=== PATIENT | male | born 1985 | race Two or more races ===

== ENCOUNTER 2019-09-07 15:51 | Emergency (ER) | payer SELFPAY ==
[~2019-09-07] VITALS: Ht 170.2 cm; Wt 64.0 kg
[2019-09-07] MEDS ORDERED: SODIUM CHLORIDE 0.9% 1,000ML IVBOLUS ONE (16:30)
[2019-09-07] MEDS ORDERED: SODIUM CHLORIDE FLUSH 10ML SYR IVF ONE (16:30)
--- NOTE | 2019-09-07 16:42 | NUR ---
PT BIB FOR ETOH INTOXICATION. PT VSS, NO INJURIES.
--- NOTE | 2019-09-07 17:23 | NUR ---
PT SLEEPING. VSS
[2019-09-07 17:24] VITALS: BP 102/65
--- NOTE | 2019-09-07 18:44 | NUR ---
RIPPED IV OUT PRIOR TO LEAVING.
== END 2019-09-07 18:45 | disposition left against medical advice (07) ==
LOC: ED 18:39
DX: F10.120 Alcohol abuse with intoxication, uncomplicated (principal); Y90.0 Blood alcohol level of less than 20 mg/100 ml
CPT/HCPCS: 99283; J7030

== ENCOUNTER 2019-09-07 22:27 | Emergency (ER) | payer SELFPAY ==
[~2019-09-07] VITALS: Ht 170.2 cm; Wt 75.0 kg
--- NOTE | 2019-09-07 22:55 | NUR ---
PT RESTING ON GURNEY WITH EYES CLOSED, RESPIRATIONS EVEN AND NONLABORED, CALL LIGHT WITHIN REACH. MONITORING IN PLACE, ALL SAFETY MEASURES IN PLACE.
[2019-09-07 23:11] LABS: ALBUMIN 3.9 g/dL (3.4-5.0); ANION GAP 8 mmol/L (5-15); CHLORIDE 111 mmol/L (98-107); CREATININE 0.75 mg/dL (0.7-1.3)
--- NOTE | 2019-09-07 23:37 | NUR ---
PT RESTING ON GURNEY WITH EYES CLOSED, RESPIRATIONS EVEN AND NONLABORED. CALL LIGHT WITHIN REACH. MONITORING IN PLACE.
--- NOTE | 2019-09-07 23:46 | NUR ---
HARD RESTRAINT REMOVED AT THIS TIME. PT RESTING ON GURNEY WITH EYES CLOSED. RESPIRATIONS EVEN AND NONLABORED.
--- NOTE | 2019-09-08 00:42 | NUR ---
PT RESTING ON GURNEY WITH EYES CLOSED, RESPIRATIONS EVEN AND NONLABORED, MONITORING IN PLACE. CALL LIGHT WITHIN REACH, ALL SAFETY MEASURES IN PLACE.
--- NOTE | 2019-09-08 00:52 | NUR ---
TASK RN: PT IS ASLEEP IN [facility] AT THIS TIME. PT ATTACHED TO VS MONITORS. VSS. CALL LIGHT IS WITHIN REACH OF PT AT THIS TIME.
--- NOTE | 2019-09-08 03:10 | NUR ---
PT UP TO BATHROOM WITH UNSTEADY GAIT AND X1 ASSIST. PT BACK TO [facility] WITH X2 RAILS RAISED, MONITORING REAPPLIED, CALL LIGHT WITHIN REACH. ALL SAFETY MEASURES IN PLACE.
[2019-09-08 04:43] VITALS: BP 102/66
== END 2019-09-08 04:58 | disposition home or self-care (01) ==
LOC: ED 09-08 04:55
DX: F10.220 Alcohol dependence with intoxication, uncomplicated (principal); G31.2 Degeneration of nervous system due to alcohol; Y90.0 Blood alcohol level of less than 20 mg/100 ml
CPT/HCPCS: 36415; 80048; 80307; 82040; 99285

== ENCOUNTER 2019-09-08 10:11 | Emergency (ER) | payer SELFPAY ==
[~2019-09-08] VITALS: Ht 172.7 cm; Wt 69.0 kg
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
--- NOTE | 2019-09-08 12:25 | NUR ---
PATIENT SLEEPING IN BED,RR EVEN AND UNLABORED.
--- NOTE | 2019-09-08 12:34 | NUR ---
Alexia cruz in [facility] - 09/08/19 at 1441 by [email or web address] PATIENT TOLD MD LOPEZ THAT HE PLANS TO SHOOT HIMSELF, SITTER REQUESTED
[2019-09-08 14:22] VITALS: BP 115/65
--- NOTE | 2019-09-08 14:22 | NUR ---
PT AMBULATING WITH STEADY GAIT, DIET TRAY GIVEN
== END 2019-09-08 14:24 | disposition home or self-care (01) ==
LOC: ED 12:25
DX: F10.220 Alcohol dependence with intoxication, uncomplicated (principal); Y90.9 Presence of alcohol in blood, level not specified
CPT/HCPCS: 36415; 80307; 99283

== ENCOUNTER 2020-07-19 16:56 | Emergency (ER) | payer SELFPAY ==
[~2020-07-19] VITALS: Ht 172.7 cm; Wt 65.0 kg
[2020-07-19 17:03] VITALS: BP 114/80
--- NOTE | 2020-07-19 17:11 | NUR ---
PT UP OUT OF ROOM REQUESTING TO LEAVE. PT ABLE TO AMBULATE BUT AGREED TO WAIT FOR FOOD.
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
== END 2020-07-19 17:29 | disposition left against medical advice (07) ==
LOC: ED 17:00
DX: F10.220 Alcohol dependence with intoxication, uncomplicated (principal); Y90.0 Blood alcohol level of less than 20 mg/100 ml
CPT/HCPCS: 99283

== ENCOUNTER 2020-11-20 10:04 | Emergency (ER) | payer OTHER ==
[~2020-11-20] VITALS: Ht 175.3 cm; Wt 78.0 kg
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
[2020-11-20] MEDS ORDERED: SODIUM CHLORIDE 0.9% 1,000ML IVBOLUS ONE (10:30)
[2020-11-20 10:51] LABS: BASOPHILS % (AUTO) 2 % (0-1); EOSINOPHILS % (AUTO) 0 % (1-7); LYMPHOCYTES % (AUTO) 12 % (22-44); MEAN CORPUSCULAR HEMOGLOBIN 33.4 pg (27.5-34.5); MEAN CORPUSCULAR HGB CONC 34.1 g/dL (33.2-36.2); MONOCYTES % (AUTO) 13 % (2-9); NEUTROPHILS % (AUTO) 73 % (42-75); PLATELET COUNT 170 x10^3/uL (130-400); RED BLOOD COUNT 3.76 x10^6/uL (4.38-5.82); RED CELL DISTRIBUTION WIDTH 14.1 % (9.4-14.8)
[2020-11-20 10:57] LABS: ALANINE AMINOTRANSFERASE 86 U/L (12-78); ALBUMIN 3.9 g/dL (3.4-5.0); ANION GAP 10 mmol/L (5-15); CALCIUM 8.7 mg/dL (8.5-10.1); CHLORIDE 104 mmol/L (98-107); CREATININE 0.71 mg/dL (0.7-1.3)
[2020-11-20 10:59] LABS: ALKALINE PHOSPHATASE 55 U/L (45-117); BILIRUBIN,TOTAL 1.1 mg/dL (0.2-1.0); SALICYLATE LEVEL 2.3 mg/dL (2.8-20.0)
[2020-11-20] MEDS ORDERED: POTASSIUM CHLORIDE 40 MEQ in SODIUM CHLORIDE 0.9% 500 ML IV ONE (11:30)
[2020-11-20] MEDS ORDERED: MAGNESIUM SULFATE PMX 2GM/50ML 50 ML IV ONE (11:30)
[2020-11-20] MEDS ORDERED: MAGNESIUM SULFATE PMX 2GM/50ML 50 ML ONE (11:56)
[2020-11-20 12:18] VITALS: BP 114/72
--- NOTE | 2020-11-20 12:38 | NUR ---
PT CALM IIN BED, PT ASKED TO COLLECT URINE. PT NOT ABLE TO AT THIS TIME.
[2020-11-20] MEDS ORDERED: POTASSIUM CHLORIDE 20 MEQ PACKET PO ONE (13:30)
[2020-11-20] MEDS ORDERED: POTASSIUM CHLORIDE 20 MEQ PACKET ONE (13:47)
== END 2020-11-20 14:48 | disposition home or self-care (01) ==
LOC: ED 11:00
DX: F10.239 Alcohol dependence with withdrawal, unspecified (principal); E87.6 Hypokalemia; Y90.9 Presence of alcohol in blood, level not specified
CPT/HCPCS: 36415; 80053; 80299; 80320; 85025; 96361; 96365; 99284; J3475; J7030; 80329; G0480